=== PATIENT | female | born 1950 | race African-American/Black ===

== ENCOUNTER 2021-01-09 19:27 | Emergency (ER) | payer MEDICARE ==
[2021-01-09] MEDS ORDERED: predniSONE 20 MG TAB ONE (22:54)
== END 2021-01-09 22:40 | disposition home or self-care (01) ==
LOC: BURERS 19:27
DX: L25.9 Unspecified contact dermatitis, unspecified cause (principal); I10 Essential (primary) hypertension; E78.5 Hyperlipidemia, unspecified; Z79.899 Other long term (current) drug therapy
CPT/HCPCS: 99283; J7512

== ENCOUNTER 2025-08-19 15:27 | Emergency (ER) | payer MEDICARE, OTHER | END 2025-08-19 16:17 | disposition home or self-care (01) | LOC: BURERS 15:27 | DX: S81.812A Laceration without foreign body, left lower leg, initial encounter (principal); E78.5 Hyperlipidemia, unspecified; I10 Essential (primary) hypertension; Z79.899 Other long term (current) drug therapy; W45.0XXA Nail entering through skin, initial encounter | CPT/HCPCS: 12001; 99282 ==

== ENCOUNTER 2025-08-29 16:37 | Emergency (ER) | payer MEDICARE, OTHER | END 2025-08-29 17:03 | disposition home or self-care (01) | LOC: BURERS 16:37 | DX: S81.812D Laceration without foreign body, left lower leg, subsequent encounter (principal); I10 Essential (primary) hypertension; E78.5 Hyperlipidemia, unspecified; Z79.899 Other long term (current) drug therapy ==